=== PATIENT | male | born 1985 | race Hispanic/Latino ===

== ENCOUNTER 2018-02-03 11:09 | Inpatient (IN) | payer BC ==
[2018-02-03 11:09] VITALS: BMI 23.0
--- NOTE | 2018-02-03 11:47 | ED PDOC ---
Arrival/HPI - General Chief Complaint: Psychiatric Evaluation Time Seen by Provider: 02/03/18 11:45 - History of Present Illness Narrative History of Present Illness (Text): 02/03/18 11:47 Patient is a 32 y/o M with hx of anxiety, on klonopin, presenting with anxiety and suicidal ideation. Patient reports that he took the last of his klonopin 3 days ago and is feeling suicidal and anxious. Denies plan. Reports hx of cutting. Denies homicidal ideation. Denies auditory or visual hallucinations. Denies somatic complaints. 02/03/18 11:47 Past Medical History - Provider Review Nursing Documentation Reviewed: Yes - Infectious Disease Hx of Infectious Diseases: None - Tetanus Immunization Tetanus Immunization: Unknown - Past Medical History Past Medical History: No Previous - Cardiac Hx Cardiac Disorders: No - Pulmonary Hx Respiratory Disorders: No - Neurological Hx Neurological Disorder: No - HEENT Hx HEENT Disorder: No - Renal Hx Renal Disorder: No - Endocrine/Metabolic Hx Endocrine Disorders: No - Hematological/Oncological Hx Blood Disorders: No - Integumentary Hx Dermatological Disorder: No - Musculoskeletal/Rheumatological Hx Musculoskeletal Disorders: No - Gastrointestinal Hx Gastrointestinal Disorders: No - Genitourinary/Gynecological Hx Genitourinary Disorders: No - Psychiatric Hx Depression: Yes Hx Substance Use: No - Surgical History Other/Comment: adeniodectomy, deviated septum repair - Anesthesia Hx Anesthesia: Yes Hx Anesthesia Reactions: No Hx Malignant Hyperthermia: No - Suicidal Assessment Feels Threatened In Home Enviroment: No Family/Social History - Physician Review Nursing Documentation Reviewed: Yes Family/Social History: Unknown Family HX Smoking Status: Never Smoked Hx Alcohol Use: Yes (once a week) Hx Substance Use: No Hx Substance Use Treatment: No Allergies/Home Meds Allergies/Adverse Reactions: Allergies No Known Allergies Allergy (Verified 02/03/18 11:23) Home Medications: Home Meds Medication Instructions Recorded Confirmed Clonazepam [Klonopin] 0.5 mg PO DAILY 02/03/18 02/03/18 Review of Systems - Review of Systems Constitutional: absent: Fevers, Night Sweats ENT: absent: Rhinorrhea Respiratory: absent: SOB Cardiovascular: absent: Chest Pain Gastrointestinal: absent: Diarrhea, Nausea, Vomiting Genitourinary Male: absent: Dysuria Musculoskeletal: absent: Back Pain, Neck Pain Skin: absent: Rash Neurological: absent: Headache, Dizziness Psychiatric: Anxiety, Suicidal Ideation Physical Exam Vital Signs Reviewed: Yes Vital Signs Temp Pulse Resp BP Pulse Ox 02/03/18 11:20 98 F 73 18 145/82 98 Temperature: Afebrile Blood Pressure: Normal Pulse: Regular Respiratory Rate: Normal Appearance: Positive for: Well-Appearing, Non-Toxic, Comfortable Pain Distress: None Mental Status: Positive for: Alert and Oriented X 3 - Systems Exam Head: Present: Atraumatic, Normocephalic Pupils: Present: PERRL Extroacular Muscles: Present: EOMI Conjunctiva: Present: Normal Mouth: Present: Moist Mucous Membranes Neck: Present: Normal Range of Motion Respiratory/Chest: Present: Clear to Auscultation, Good Air Exchange. No: Respiratory Distress, Accessory Muscle Use Cardiovascular: Present: Regular Rate and Rhythm, Normal S1, S2. No: Murmurs Abdomen: No: Tenderness, Distention, Peritoneal Signs Back: Present: Normal Inspection Upper Extremity: Present: Normal Inspection. No: Cyanosis, Edema Lower Extremity: Present: Normal Inspection. No: Edema Neurological: Present: GCS=15, CN II-XII Intact, Speech Normal Skin: Present: Warm, Dry, Normal Color. No: Rashes Psychiatric: Present: Alert, Oriented x 3, Anxious, Suicidal Ideation Medical Decision Making ED Course and Treatment: 02/03/18 11:48 Impression: 32 year old male presents to the Emergency department complaining of anxiety and suicidal ideation. Plan: -- Chest xray -- EKG -- Labs -- AES crisis evaluation -- Reassess and disposition Prior Visits: Notes and results from previous visits were reviewed. Progress Notes: 02/03/18 11:49 Patient is on 1:1 for suicidal ideation. 02/03/18 12:02 EKg shows NSR at 71bpm with normal intervals and no st changes 02/03/2018 12:32:49 Chest Xray FINDINGS: LUNGS: No active pulmonary disease. PLEURA: No significant pleural effusion identified, no pneumothorax apparent. CARDIOVASCULAR: Normal. OSSEOUS STRUCTURES: No significant abnormalities. VISUALIZED UPPER ABDOMEN: Normal. OTHER FINDINGS: None. IMPRESSION: No active disease. 02/03/18 13:59 Patient medically cleared and accepted by psych for voluntary admission 02/03/18 14:00 - Lab Interpretations Lab Results: 02/03/18 11:50 02/03/18 11:50 Lab Results 02/03/18 13:35: Urine Color Yellow, Urine Appearance Clear, Urine pH 6.0, Ur Specific [place] >= 1.030, Urine Protein Negative, Urine Glucose (UA) Negative, Urine Ketones Negative, Urine Blood Small H, Urine Nitrate Negative, Urine Bilirubin Negative, Urine Urobilinogen 0.2, Ur Leukocyte Esterase Negative, Urine RBC Pending, Urine WBC Pending 02/03/18 12:04: Urine Opiates Screen Negative, Urine Methadone Screen Negative, Ur Barbiturates Screen Negative, Ur Phencyclidine Scrn Negative, Ur Amphetamines Screen Negative, U Benzodiazepines Scrn Negative, U Oth Cocaine Metabols Negative, U Cannabinoids Screen Negative 02/03/18 11:50: Alcohol, Quantitative < 10 02/03/18 11:50: Sodium 146, Potassium 4.2, Chloride 104, Carbon Dioxide 28, Anion Gap 17, BUN 22 H, Creatinine 1.0, Est GFR ( Amer) > 60, Est GFR ( Non-Af Amer) > 60, Random Glucose 92, Calcium 9.4, Total Bilirubin 0.8, AST 21, ALT 28, Alkaline Phosphatase 64, Total Protein 8.6 H, Albumin 5.0 H, Globulin 3.6, Albumin/Globulin Ratio 1.4 02/03/18 11:50: WBC 7.4, RBC 5.38, Hgb 16.5, Hct 45.6, MCV 84.8, MCH 30.7, MCHC 36.2, RDW 12.9, Plt Count 282, MPV 9.4, Gran % 57.2, Lymph % (Auto) 33.0, [place] % (Auto) 8.8 H, Eos % (Auto) 0.9 L, Baso % (Auto) 0.1, Gran # 4.24, Lymph # ( Auto) 2.5, [place] # (Auto) 0.7 H, Eos # (Auto) 0.1, Baso # (Auto) 0.01 - RAD Interpretation Radiology Orders: 02/03/18 11:46 CHEST PORTABLE [RAD] Stat Disposition/Present on Arrival - Present on Arrival Any Indicators Present on Arrival: No History of DVT/PE: No History of Uncontrolled Diabetes: No Urinary Catheter: No History of Decub. Ulcer: No History Surgical Site Infection Following: None - Disposition Have Diagnosis and Disposition been Completed?: Yes Diagnosis: Depression, Hematuria Disposition: HOSPITALIZED Disposition Time: 14:00 Patient Plan: Admission Condition: FAIR Referrals: PCP,NO [Primary Care Provider] - Follow up with primary Forms: [employer] ([place])
[2018-02-03 12:05] LABS: BASO # 0.01 K/mm3 (0.0-2.0); BASO % 0.1 % (0.0-3.0); EOS # 0.1 (0.0-0.7); EOS % 0.9 % (1.5-5.0); GRAN # 4.24 (1.4-6.5); GRAN % 57.2 % (50.0-68.0); HEMOGLOBIN 16.5 g/dL (14.0-18.0); LYMPH # 2.5 (1.2-3.4); MEAN CELL VOLUME 84.8 fl (80.0-105.0); MEAN CORPUSCULAR HEMOGLOBIN 30.7 pg (25.0-35.0); MEAN CORPUSCULAR HGB CONC 36.2 g/dl (31.0-37.0); MEAN PLATELET VOLUME 9.4 fl (7.0-11.0); MONO # 0.7 (0.1-0.6); MONO % 8.8 % (1.0-6.0); RBC 5.38 10^6/uL (3.5-6.1); RED CELL DISTRIBUTION WIDTH 12.9 % (11.5-14.5); WHITE BLOOD COUNT 7.4 10^3/ul (4.5-11.0)
[2018-02-03 12:19] LABS: ALB/GLOB RATIO 1.4 (1.1-1.8); ALT/SGPT 28 U/L (7-56); AST/SGOT 21 U/L (17-59); BLOOD UREA NITROGEN 22 mg/dL (7-21); CALCIUM 9.4 mg/dL (8.4-10.5); GFR AFRICAN-AMERICAN > 60; GFR NON-AFRICAN AMERICAN > 60
--- NOTE | 2018-02-03 12:34 | RAD ---
HISTORY: psych COMPARISON: 03/20/2015 FINDINGS: LUNGS: No active pulmonary disease. PLEURA: No significant pleural effusion identified, no pneumothorax apparent. CARDIOVASCULAR: Normal. OSSEOUS STRUCTURES: No significant abnormalities. VISUALIZED UPPER ABDOMEN: Normal. OTHER FINDINGS: None. IMPRESSION: No active disease.
[2018-02-03 12:42] LABS: BARBITURATES, UR NEGATIVE (NEGATIVE); BENZODIAZEPINES, UR NEGATIVE (NEGATIVE); OPIATES, UR NEGATIVE (NEGATIVE); PHENCYCLIDINE, UR NEGATIVE (NEGATIVE)
[2018-02-03 13:53] LABS: URINE BILIRUBIN NEGATIVE (NEGATIVE); URINE BLOOD SMALL (NEGATIVE); URINE GLUCOSE (UA) NEGATIVE (NEGATIVE); URINE LEUKOCYTE ESTERASE NEGATIVE Leu/uL (NEGATIVE); URINE PROTEIN NEGATIVE mg/dL (<30 mg/dL); URINE UROBILINOGEN 0.2 E.U./dL (<1 E.U./dL)
[2018-02-03 13:57] LABS: URINE APPEARANCE CLEAR (CLEAR); URINE COLOR YELLOW (YELLOW)
[2018-02-03 14:07] LABS: URINE BACTERIA MOD (NEG); URINE EPITHELIAL CELLS 0 - 2 /hpf (0-5); URINE WBC 0 - 2 /hpf (0-6)
[2018-02-03 14:41] VITALS: O2SAT 100
[2018-02-03] MEDS ORDERED: Magnesium Hydroxide Susp 30 ml UD PO PRN (18:01)
[2018-02-03] MEDS ORDERED: Alum-Mag Hydrox-Simethicone Susp (30 mL) PO PRN (18:01)
--- NOTE | 2018-02-03 18:22 | PCM.BM ---
<Baldomero Sanchez - Last Filed: 02/03/18 18:19> Treatment Plan Problems - Problems identified on initial assessmt Feeling worhtlessness Date Initiated: 02/03/18 Time Initiated: 16:00 Assessment reference: NA Status: Active Priority: 1 Comment: "difficult to deal without my son" Suicide Risk Date Initiated: 02/03/18 Time Initiated: 16:00 Assessment reference: NA Status: Active Priority: 2 Comment: "it crossed my mind to hurt myself" medication nonadherence Date Initiated: 02/03/18 Time Initiated: 16:00 Assessment reference: NA Status: Active Priority: 3 Altered sleep pattern Date Initiated: 02/03/18 Time Initiated: 16:00 Assessment reference: NA Status: Active Priority: 4 Comment: I only sleep 2-3 hrs Treatment assets and liabiliti Patient Assests: cooperative, insightful, motivated, ADL independent, physically healthy, negotiates basic needs, financial stabiity Patient Liabilities: live alone, relationship conflicts - Milieu Protocol Maintain good personal hygiene: every shift Encourage regular showers, every shift Remind patient to perform daily oral care, every shift Assist patient to perform ADL's Conduct patient checks and document Observation sheet: Q15 minutes Maintain personal safety: every shift Educate patient to report safety concerns to staff, every shift Monitor environment for contraband/sharps Medication safety: Monitor for expected outcome, potential side effects: every shift, Assess barriers to learning: every shift, Assess readiness for medication education: every shift Discharge/Continuing Care - Education Needs Education Needs: Patient Medication, Patient Diagnosis/Disease Process, Patient Coping Skills, Patient Community resources, Patient Activities of Daily Living, Patient Nutrition, Patient Health Practices/Safety, Patient Personal Hygiene/ Grooming - Discharge Discharge Criteria: Tolerates medication w/o severe side effects, Free of Suicidal thoughts, Normal sleep pattern, Ability to care for self, Reduction of target symptoms Discharge to:: Home <Nicole Doss - Last Filed: 02/04/18 15:32> - Diagnosis (1) MDD (major depressive disorder) Status: Acute Interventions: 02/04/18 15:33 Psychoeducation Psychopharmacology/adjustment of medications as needed/ monitoring possible side effects Evaluate pt on daily basis Compliance with medications and follow up appointments Suicide and homicide risk assessment and prevention Relapse prevention Reduction of symptoms Improve functional status Family involvement As outpatient: cognitive behavioral therapy (2) CRISTHIAN (generalized anxiety disorder) Status: Acute Interventions: 02/04/18 15:33 Psychoeducation Psychopharmacology/adjustment of medications as needed/ monitoring possible side effects Evaluate pt on daily basis Discussion of importance of being compliant with medications and follow up appointments Suicide and homicide risk assessment and prevention, coping strategies, safety plan Reduction of symptoms Relaxation techniques and breathing exercises Improve functional status Family involvement Cognitive behavioral therapy as outpatient <Saba Silva Y - Last Filed: 02/05/18 16:22> Family Contact Family involvement: Family/SO is involved
--- NOTE | 2018-02-04 00:31 | CARD ---
APPROVED REPORT EKG Measurement Heart [id number] <Conclusion> Normal sinus rhythm Normal ECG
[2018-02-04 08:22] LABS: GLUCOSE,FASTING 95 mg/dL (65-110); HDL CHOLESTEROL 50 mg/dL (29-60)
[2018-02-04 08:34] LABS: LDL CHOLESTEROL 75 mg/dL (0-129)
[2018-02-04 08:36] LABS: FREE T4 1.16 ng/dL (0.78-2.19)
--- NOTE | 2018-02-04 15:32 | PCM.PSYCH ---
Initial Psychiatric Evaluation - Initial Psychiatric Evaluation Type of Admission: Voluntary Legal Status: Capacity (Patient has capacity to sign consent for treatment) Chief Complaint (in patient's own words): "I did not feel well for past week, I was feeling depressed, I was feeling hopeless, I thought to end up my life but I got scared and I brought myself to the hospital" Patient's Reaction to Hospitalization: patient was admitted for evaluation and stabilization of depressive symptoms, feeling of hopelessness, helplessness, suicidal ideation with a plan to cut himself with a knife History of Present Illness and Precipitating Events: Shortly patient is 32 year old male, not known previous psychiatric history, self reported history of anxiety, patient sees local psychiatrist for anxiety and takes Klonopin, patient brought himself to the hospital for evaluation of suicidal ideation with a plan to cut himself with a knife, patient was holding a knife but got scared and brought himself to the hospital, patient requires further evaluation and stabilization, observation, medications titration, patient feel outpatient treatment, now requires inpatient hospitalization. Patient was seen today at the treatment team meeting room, patient presented to be depressed, flat affect, acceptable personal hygiene, good ADLs. Patient was minimizing his history, patient reported that he slept well on Remeron 15 mg at the nighttime for 2 was initiated by this appeals writer, patient reported that he was feeling depressed more than usual for past week, patient was coping with the stress by drinking beer, patient denied alcohol addiction, patient reported that he is not using drugs, denied smoking. Patient reported for past week she was feeling more depressed, hopeless, helpless, was not able to eat, lost weight, patient also had difficulty to fall and stay asleep. Patient reported that he feels anxious, "like room is closing on me", patient reported that he feels anxious, and "on ease". Patient denied visual, auditory, tactile hallucinations, patient does not present to be psychotic, denied paranoid ideation. Patient denied history of being abused, denied physical, sexual, emotional abuse. Patient had multiple sexual partners, which led patient to have recent breakup with the girlfriend and mother of his son. past psychiatric history: Patient denied ever been admitted to the psychiatric inpatient unit, denied history of suicidal attempts, patient was seen by Dr. Eduardo Caceres in the community, who prescribed Klonopin as needed for anxiety. Patient reported that Klonopin was not very effective to him. Family history: Patient denied family history of mental illness. Medical history: Patient denied medical problems. Social history: Patient works for the [employer] or [employer], denied any legal problems, lives independently. 02/03/18 11:50 02/03/18 11:50 Lab Results 02/04/18 07:30: Free T4 1.16, TSH 3rd Generation 1.84 02/04/18 07:30: Fasting Glucose 95, Triglycerides 107, Cholesterol 150, LDL Cholesterol Direct 75, HDL Cholesterol 50 02/03/18 13:35: Urine Color Yellow, Urine Appearance Clear, Urine pH 6.0, Ur Specific [place] >= 1.030, Urine Protein Negative, Urine Glucose (UA) Negative, Urine Ketones Negative, Urine Blood Small H, Urine Nitrate Negative, Urine Bilirubin Negative, Urine Urobilinogen 0.2, Ur Leukocyte Esterase Negative, Urine RBC 5 - 10, Urine WBC 0 - 2, Ur Epithelial Cells 0 - 2, Urine Bacteria Mod 02/03/18 12:04: Urine Opiates Screen Negative, Urine Methadone Screen Negative, Ur Barbiturates Screen Negative, Ur Phencyclidine Scrn Negative, Ur Amphetamines Screen Negative, U Benzodiazepines Scrn Negative, U Oth Cocaine Metabols Negative, U Cannabinoids Screen Negative 02/03/18 11:50: Alcohol, Quantitative < 10 02/03/18 11:50: Sodium 146, Potassium 4.2, Chloride 104, Carbon Dioxide 28, Anion Gap 17, BUN 22 H, Creatinine 1.0, Est GFR ( Amer) > 60, Est GFR ( Non-Af Amer) > 60, Random Glucose 92, Calcium 9.4, Total Bilirubin 0.8, AST 21, ALT 28, Alkaline Phosphatase 64, Total Protein 8.6 H, Albumin 5.0 H, Globulin 3.6, Albumin/Globulin Ratio 1.4 02/03/18 11:50: WBC 7.4, RBC 5.38, Hgb 16.5, Hct 45.6, MCV 84.8, MCH 30.7, MCHC 36.2, RDW 12.9, Plt Count 282, MPV 9.4, Gran % 57.2, Lymph % (Auto) 33.0, [place] % (Auto) 8.8 H, Eos % (Auto) 0.9 L, Baso % (Auto) 0.1, Gran # 4.24, Lymph # ( Auto) 2.5, [place] # (Auto) 0.7 H, Eos # (Auto) 0.1, Baso # (Auto) 0.01 Vital Signs Temp Pulse Resp BP Pulse Ox 02/04/18 06:59 97.9 F 58 L 20 105/70 02/03/18 16:11 16 02/03/18 14:39 98 F 68 18 128/75 100 02/03/18 11:20 98 F 73 18 145/82 98 Current Medications: Active Medications Generic Name Dose Route Start Last Admin Trade Name Freq PRN Reason Stop Dose Admin Acetaminophen 650 mg 02/03/18 18:00 Tylenol 325mg Tab PO Q6H PRN Pain, moderate (4-7) Al Hydrox/Mg Hydrox/Simethicone 30 ml 02/03/18 18:01 Maalox Plus 30 Ml PO DAILY PRN Indigestion / Heartburn Lorazepam 2 mg 02/03/18 17:57 Ativan PO Q6 PRN Agitation Protocol Lorazepam 2 mg 02/03/18 17:59 Ativan IVP Q6H PRN Anxiety Protocol Magnesium Hydroxide 30 ml 02/03/18 18:01 Milk Of Magnesia PO DAILY PRN Constipation Mirtazapine 15 mg 02/03/18 22:00 02/03/18 22:48 Remeron PO 15 mg HS VADIM Administration Zaleplon 5 mg 02/03/18 17:41 Sonata PO HS PRN Insomnia Ziprasidone 20 mg 02/03/18 17:54 Geodon Cap PO Q6 PRN Anxiety Protocol Ziprasidone 20 mg 02/03/18 17:56 Geodon Inj IM Q6 PRN Agitation Protocol Past Psychiatric History - Past Psychiatric History Previous Treatment History: None Prior Professional Help: see HPI Prior Psychiatric Treatment: see HPI At what hospital: see HPI Duration: see HPI Nature of Treatment: see HPI Explanation of prior treatment: see HPI History of Abuse: see HPI History of ETOH/Drug Use: see HPI History of Family Illness: see HPI Pertinent Medical Hx (Current Medical&Sleep Prob, Allergies): Allergies Allergy/AdvReac Type Severity Reaction Status Date / Time No Known Allergies Allergy Verified 02/03/18 15:51 Clonazepam [Klonopin] 0.5 mg PO DAILY 02/03/18 Review of Systems - Review of Systems Systems not reviewed;Unavailable: Acuity of Condition - EENT Eyes: As Per HPI Ears: As Per HPI Nose/Mouth/Throat: As Per HPI - Cardiovascular Cardiovascular: As Per HPI - Respiratory Respiratory: As Per HPI - Gastrointestinal Gastrointestinal: As Per HPI - Genitourinary Genitourinary: As Per HPI - Reproductive: Male Reproductive:Male: As Per HPI - Musculoskeletal Musculoskeletal: As Par HPI - Integumentary Integumentary: As Per HPI - Neurological Neurological: As Per HPI - Psychiatric Psychiatric: As Per HPI - Endocrine Endocrine: As Per HPI - Hematologic/Lymphatic Hematologic: As Per HPI Mental Status Examination - Personal Presentation Personal Presentation: Looks stated age - Affect Affect: Flat - Motor Activity Motor Activity: Psychomotor Retardation - Reliability in Providing Information Reliability in Providing Information: Fair - Speech Speech: Organized - Mood Mood: Depressed, Anxious - Formal Thought Process Formal Thought Process: No Impairment - Obsessions/Compulsions Obsessions: None Compulsions: None - Cognitive Functions Orientation: Person, Place, Situation, Time Sensorium: Alert Attention/Concentration: Easily distracted Estimate of Intelligence: Average Judgement: Imparied, as evidence by: Lack of insight into illness - Risk Risk: Suicidal, Self-mutilation, Diminished functioning - Strength & Assets Inventory Strength & Assets Inventory: Intelligence, Family support, Education, Employment status, Employment history, Interests/hobbies, Spiritual affiliations , Cooperative, Other (good physical health, no drugs involved, good social support) - Limitations Limitations: Other (pt had suicidal thougths of cutting hismelf) DSM 5 DX - DSM 5 DSM 5 Diagnosis: mdd r/o adjustment disorder r/o CRISTHIAN r/o panic disorder - Recommended/Plan of Treatment Treatment Recommendations and Plan of Treatment: Milieu/structure/supportive therapy Medical consult Will be considered Remeron 15 mg at the nighttime for insomnia as well as major depressive disorder As needed medication SW consultation for discharge plan and social issues Family involvement Follow up on labs Will monitor closely Pt was educated about risk/benefits and alternatives of medications, coping strategies (safety plan, suicide prevention), relapse prevention, importance of follow up with psychiatrist and therapist, stay away from drugs/alcohol/smoking Projected ELOS: 5days Prognosis: fair Discharge Plan and Discharge Criteria: Pt will be not depressed or manic, will be more hopeful, will be not psychotic or anxious, will be not having thoughts of harming self or others, will be tolerating medications well, will not have major side effects, will be able to function, will not pose threat to self or others. - Smoking Cessation Smoking Cessation Initiated: No Reason for not providing: denied smoking
--- NOTE | 2018-02-05 16:27 | PCM.PYCHPN ---
Psychiatric Progress Note - Psychiatric Progress Note Patient seen today, length of contact: 30 minutes Patient Chief Complaint: "I was feeling very hopeless, helpless, I didn't want to do anything' Problems Identified/Issues Discussed: Suicide/ homicide prevention, past psychiatric h/o, current psychiatric symptoms , medical problems, risk/benefits and alternatives of medications, medications compliance, coping strategies, substance abuse h/o, relapse prevention, importance of follow up with psychiatrist and therapist, discharge plan. Medical Problems: patient reported being healthy Diagnostic Results: 02/03/18 11:50 02/03/18 11:50 Lab Results 02/04/18 07:30: RPR Nonreactive 02/04/18 07:30: Free T4 1.16, TSH 3rd Generation 1.84 02/04/18 07:30: Fasting Glucose 95, Triglycerides 107, Cholesterol 150, LDL Cholesterol Direct 75, HDL Cholesterol 50 02/03/18 13:35: Urine Color Yellow, Urine Appearance Clear, Urine pH 6.0, Ur Specific [place] >= 1.030, Urine Protein Negative, Urine Glucose (UA) Negative, Urine Ketones Negative, Urine Blood Small H, Urine Nitrate Negative, Urine Bilirubin Negative, Urine Urobilinogen 0.2, Ur Leukocyte Esterase Negative, Urine RBC 5 - 10, Urine WBC 0 - 2, Ur Epithelial Cells 0 - 2, Urine Bacteria Mod 02/03/18 12:04: Urine Opiates Screen Negative, Urine Methadone Screen Negative, Ur Barbiturates Screen Negative, Ur Phencyclidine Scrn Negative, Ur Amphetamines Screen Negative, U Benzodiazepines Scrn Negative, U Oth Cocaine Metabols Negative, U Cannabinoids Screen Negative 02/03/18 11:50: Alcohol, Quantitative < 10 02/03/18 11:50: Sodium 146, Potassium 4.2, Chloride 104, Carbon Dioxide 28, Anion Gap 17, BUN 22 H, Creatinine 1.0, Est GFR ( Amer) > 60, Est GFR ( Non-Af Amer) > 60, Random Glucose 92, Calcium 9.4, Total Bilirubin 0.8, AST 21, ALT 28, Alkaline Phosphatase 64, Total Protein 8.6 H, Albumin 5.0 H, Globulin 3.6, Albumin/Globulin Ratio 1.4 02/03/18 11:50: WBC 7.4, RBC 5.38, Hgb 16.5, Hct 45.6, MCV 84.8, MCH 30.7, MCHC 36.2, RDW 12.9, Plt Count 282, MPV 9.4, Gran % 57.2, Lymph % (Auto) 33.0, [place] % (Auto) 8.8 H, Eos % (Auto) 0.9 L, Baso % (Auto) 0.1, Gran # 4.24, Lymph # ( Auto) 2.5, [place] # (Auto) 0.7 H, Eos # (Auto) 0.1, Baso # (Auto) 0.01 Vital Signs Temp Pulse Resp BP Pulse Ox 02/05/18 15:00 70 18 102/61 02/05/18 07:00 98.0 F 56 L 16 103/68 02/04/18 07:00 98.0 F 56 L 16 103/68 02/04/18 06:59 97.9 F 58 L 20 105/70 02/03/18 16:11 16 02/03/18 14:39 98 F 68 18 128/75 100 02/03/18 11:20 98 F 73 18 145/82 98 DSM 5 Symptoms Update: Shortly patient is 32 year old male, not known previous psychiatric history, self reported history of anxiety, patient sees local psychiatrist for anxiety and takes Klonopin, patient brought himself to the hospital for evaluation of suicidal ideation with a plan to cut himself with a knife, patient was holding a knife but got scared and brought himself to the hospital, patient requires further evaluation and stabilization, observation, medications titration, patient feel outpatient treatment, now requires inpatient hospitalization. Patient was seen today at the treatment team meeting , patient presented to be depressed, flat affect, acceptable personal hygiene, good ADLs. patient presented to be depressed, when he was told him about his 7 year old son patient was tearful, patient reported that he broke up with his mother about the year ago and passed year was "hell for me", patient reported that he was feeling severely depressed, had no energy, did not want to do anything, feeling very down and hopeless. At present moment patient reported that he sleeps better , patient has some future orientedplans, patient was to be discharged and willing to have therapy and med management. Pt's family was proactive, scheduled appt for pt with therapist Dr.Brian Patel. pt wants to be f/u with , psychiatrist. so far patient tolerates medications well, no side effects observed or reported , aims 0, no EPS. as per staff patient is compliant with the medications, visible in the unit, no agitation, no aggression. Impression: Major depressive disorder, severe with no psychosis Medication Change: Yes (Remeron increased) Medical Record Reviewed: Yes Consults ordered or reviewed: patient is healthy, no medical issues, did not require medical consult, patient was seen by medical doctor in the emergency room Mental Status Examination - Cognitive Function Orientation: Person, Place, Situation, Time Memory: Intact Attention: Poor (better) Concentration: Poor (mproving) Association: WNL Fund of Knowledge: WNL - Mood Mood: Depressed (I feel little better), Anxious - Affect Affect: Flat (and tearful) - Formal Thought Process Formal Thought Process: No Impairment - Suicidal Ideation Suicidal Ideation: No - Homicidal Ideation Homicidal Ideation: No Goal/Treatment Plan - Goal/Treatment Plan Need for Continued Stay: Remain at risks for inpatient hospitalization, Severe depression anxiety, Discharge may exacerbated symptoms, Severe functional impairment Progress Toward Problem(s) and Goals/Treatment Plan: Milieu/structure/supportive therapy Medical consult Will be considered Remeron 30 mg at the nighttime for insomnia as well as major depressive disorder As needed medication SW consultation for discharge plan and social issues Family involvement Follow up on labs Will monitor closely Pt was educated about risk/benefits and alternatives of medications, coping strategies (safety plan, suicide prevention), relapse prevention, importance of follow up with psychiatrist and therapist, stay away from drugs/alcohol/smoking Estimated Date of D/C: 02/06/18
[2018-02-06 07:10] VITALS: BP 102/66; PULSE 61; RESP 20; TEMP 97.8
--- NOTE | 2018-02-06 17:55 | PCM.PYCHDC ---
Mental Status Examination - Mental Status Examination Orientation: Person, Place, Situation, Time Memory: Intact Mood: Neutral Affect: Constricted (But more reactive and mood congruent) Speech: Appropriate Attention: WNL Concentration: WNL Association: WNL Fund of Knowledge: WNL Formal Thought Process: No Impairment Description of patient's judgement and insight: Pt has improved insight into mental and medical illness, pt was compliant with medications and unit rules and regulations, pt was going to groups, was calm, cooperative, socially appropriate, no behavioral incidents, no agitation, no aggression. Psychotic Thoughts and Behaviors: Pt denied v/a/t hallucinations, denied paranoid ideations, pt does not appear to be psychotic, and thought process is goal directed. Suicidal Ideation: No Current Homicidal Ideation?: No Plan: pt adamantly denied thoughts of harming self or others denied intent or plan. Discharge Summary - Discharge Note Reason for Hospitalization: patient was admitted for evaluation and stabilization of depressive symptoms, feeling of hopelessness, helplessness, suicidal ideation with a plan to cut himself with a knife Psychiatric History (includes Medical, Family, Personal Hx): see HPI Laboratory Data: 02/03/18 11:50 02/03/18 11:50 Lab Results 02/04/18 07:30: RPR Nonreactive 02/04/18 07:30: Free T4 1.16, TSH 3rd Generation 1.84 02/04/18 07:30: Fasting Glucose 95, Triglycerides 107, Cholesterol 150, LDL Cholesterol Direct 75, HDL Cholesterol 50 02/03/18 13:35: Urine Color Yellow, Urine Appearance Clear, Urine pH 6.0, Ur Specific [place] >= 1.030, Urine Protein Negative, Urine Glucose (UA) Negative, Urine Ketones Negative, Urine Blood Small H, Urine Nitrate Negative, Urine Bilirubin Negative, Urine Urobilinogen 0.2, Ur Leukocyte Esterase Negative, Urine RBC 5 - 10, Urine WBC 0 - 2, Ur Epithelial Cells 0 - 2, Urine Bacteria Mod 02/03/18 12:04: Urine Opiates Screen Negative, Urine Methadone Screen Negative, Ur Barbiturates Screen Negative, Ur Phencyclidine Scrn Negative, Ur Amphetamines Screen Negative, U Benzodiazepines Scrn Negative, U Oth Cocaine Metabols Negative, U Cannabinoids Screen Negative 02/03/18 11:50: Alcohol, Quantitative < 10 02/03/18 11:50: Sodium 146, Potassium 4.2, Chloride 104, Carbon Dioxide 28, Anion Gap 17, BUN 22 H, Creatinine 1.0, Est GFR ( Amer) > 60, Est GFR ( Non-Af Amer) > 60, Random Glucose 92, Calcium 9.4, Total Bilirubin 0.8, AST 21, ALT 28, Alkaline Phosphatase 64, Total Protein 8.6 H, Albumin 5.0 H, Globulin 3.6, Albumin/Globulin Ratio 1.4 02/03/18 11:50: WBC 7.4, RBC 5.38, Hgb 16.5, Hct 45.6, MCV 84.8, MCH 30.7, MCHC 36.2, RDW 12.9, Plt Count 282, MPV 9.4, Gran % 57.2, Lymph % (Auto) 33.0, [place] % (Auto) 8.8 H, Eos % (Auto) 0.9 L, Baso % (Auto) 0.1, Gran # 4.24, Lymph # ( Auto) 2.5, [place] # (Auto) 0.7 H, Eos # (Auto) 0.1, Baso # (Auto) 0.01 Vital Signs Temp Pulse Resp BP Pulse Ox 02/06/18 07:09 97.8 F 61 20 102/66 02/05/18 15:00 70 18 102/61 02/05/18 07:00 98.0 F 56 L 16 103/68 02/04/18 07:00 98.0 F 56 L 16 103/68 02/04/18 06:59 97.9 F 58 L 20 105/70 02/03/18 16:11 16 02/03/18 14:39 98 F 68 18 128/75 100 02/03/18 11:20 98 F 73 18 145/82 98 Consultations:: List each consultation separately and include: 1. Reason for request. 2. Findings. 3. Follow-up Consultations: patient is healthy, no medical issues, did not require medical consult, patient was seen by medical doctor in the emergency room Summary of Hospital Course include:: 1. Description of specific treatment plan utilized for patients during their course of treatmen. 2. Summarize the time- course for resolution of acute symptoms and/or regressed behaviors. 3. Describe issues identified and worked on during hospitalization. 4. Describe medication utilized. 5. Describe medical problems identified and treated. 6. Reassessment of suicide risk Summary of Hospital Course: Shortly patient is 32 year old male, not known previous psychiatric history, self reported history of anxiety, patient sees local psychiatrist for anxiety and takes Klonopin, patient brought himself to the hospital for evaluation of suicidal ideation with a plan to cut himself with a knife, patient was holding a knife but got scared and brought himself to the hospital, patient requires further evaluation and stabilization, observation, medications titration, patient feel outpatient treatment, now requires inpatient hospitalization. Patient was seen today at the treatment team meeting room, patient presented to be depressed, flat affect, acceptable personal hygiene, good ADLs. Patient was minimizing his history, patient reported that he slept well on Remeron 15 mg at the nighttime which was initiated by this feature writer, patient reported that he was feeling depressed more than usual for past week, patient was coping with the stress by drinking beer, patient denied alcohol addiction, patient reported that he is not using drugs, denied smoking. Patient reported for past week she was feeling more depressed, hopeless, helpless, was not able to eat, lost weight, patient also had difficulty to fall and stay asleep. Patient reported that he feels anxious, "like room is closing on me", patient reported that he feels anxious, and "on ease". Patient denied visual, auditory, tactile hallucinations, patient does not present to be psychotic, denied paranoid ideation. Patient denied history of being abused, denied physical, sexual, emotional abuse. Patient had multiple sexual partners, which led patient to have recent breakup with the girlfriend and mother of his son. past psychiatric history: Patient denied ever been admitted to the psychiatric inpatient unit, denied history of suicidal attempts, patient was seen by Dr. Eduardo Caceres in the community, who prescribed Klonopin as needed for anxiety. Patient reported that Klonopin was not very effective to him. Family history: Patient denied family history of mental illness. Medical history: Patient denied medical problems. Social history: Patient works for the [employer] or [employer], denied any legal problems, lives independently. 02/03/18 11:50 02/03/18 11:50 Lab Results 02/04/18 07:30: Free T4 1.16, TSH 3rd Generation 1.84 02/04/18 07:30: Fasting Glucose 95, Triglycerides 107, Cholesterol 150, LDL Cholesterol Direct 75, HDL Cholesterol 50 02/03/18 13:35: Urine Color Yellow, Urine Appearance Clear, Urine pH 6.0, Ur Specific [place] >= 1.030, Urine Protein Negative, Urine Glucose (UA) Negative, Urine Ketones Negative, Urine Blood Small H, Urine Nitrate Negative, Urine Bilirubin Negative, Urine Urobilinogen 0.2, Ur Leukocyte Esterase Negative, Urine RBC 5 - 10, Urine WBC 0 - 2, Ur Epithelial Cells 0 - 2, Urine Bacteria Mod 02/03/18 12:04: Urine Opiates Screen Negative, Urine Methadone Screen Negative, Ur Barbiturates Screen Negative, Ur Phencyclidine Scrn Negative, Ur Amphetamines Screen Negative, U Benzodiazepines Scrn Negative, U Oth Cocaine Metabols Negative, U Cannabinoids Screen Negative 02/03/18 11:50: Alcohol, Quantitative < 10 02/03/18 11:50: Sodium 146, Potassium 4.2, Chloride 104, Carbon Dioxide 28, Anion Gap 17, BUN 22 H, Creatinine 1.0, Est GFR ( Amer) > 60, Est GFR ( Non-Af Amer) > 60, Random Glucose 92, Calcium 9.4, Total Bilirubin 0.8, AST 21, ALT 28, Alkaline Phosphatase 64, Total Protein 8.6 H, Albumin 5.0 H, Globulin 3.6, Albumin/Globulin Ratio 1.4 02/03/18 11:50: WBC 7.4, RBC 5.38, Hgb 16.5, Hct 45.6, MCV 84.8, MCH 30.7, MCHC 36.2, RDW 12.9, Plt Count 282, MPV 9.4, Gran % 57.2, Lymph % (Auto) 33.0, [place] % (Auto) 8.8 H, Eos % (Auto) 0.9 L, Baso % (Auto) 0.1, Gran # 4.24, Lymph # ( Auto) 2.5, [place] # (Auto) 0.7 H, Eos # (Auto) 0.1, Baso # (Auto) 0.01 Vital Signs Temp Pulse Resp BP Pulse Ox 02/04/18 06:59 97.9 F 58 L 20 105/70 02/03/18 16:11 16 02/03/18 14:39 98 F 68 18 128/75 100 02/03/18 11:20 98 F 73 18 145/82 98 over the past 3 days patient was stabilized on the following medications: Remeron 30 mg at the nighttime for depression and insomnia Patient tolerated medications well, no side effects observed or reported, patient did not ask r any as needed medications, was in behavioral control in the unit, was attending all groups, as a result mood improved, affect became brighter, patient seems to be remorseful for his suicidal ideation, patient is willing to be followed up with outpatient psychiatrist as well as with a therapist, patient was proactive in regards of scheduling a follow-up appointment with a therapist, patient provided this feature writer with Dr.Brian Naylor and reported he will be f/u with him for therapy. Over the course of this hospitalization pt was attending groups, pt also had medication management, had therapeutic milieu. Overall pt improved significantly, pt's affect became brighter, pt was less depressed, has realistic future oriented plans, pt also does not appear to be psychotic, or anxious, pt was socially appropriate, no behavioral issues, pts insight improved as well and soon pt deemed to be ready for discharge. At the time of the discharge pt denied been depressed, denied thoughts of harming self or others, denied psychotic symptoms, and pt does not appeared to be psychotic, denied been anxious, pt is not in imminent danger to self or others, will be following up with office, information about follow up appointment, time and address provided to the pt, it is patient responsibility to follow up with outpatient clinic, PMD as well as specialists ( see SW note for more detailed information). In case pt will need to obtain results of studies pending at discharge pt was provided with contact information of Psychiatric Inpatient unit [phone] as well as Medical Record Department [phone]. patient denied using drugs, denied smoking cigarettes, denied alcohol consumption pt was provided with prescriptions for all of medications (please see medication reconciliation form) Pt was educated about safety plan in case of worsening of symptoms or in case of suicidal or homicidal ideation call 911 or go to the nearest ER, also was educated to take meds as prescribed and stay away from drugs, pt verbalized understanding. - Diagnosis (1) MDD (major depressive disorder) Status: Acute Priority: High (2) CRISTHIAN (generalized anxiety disorder) Status: Acute Priority: Medium - Final Diagnosis (DSM 5) Condition upon Discharge: IMPROVED Disposition: HOME/ ROUTINE Follow-up Treatment Plan: At the time of the discharge pt denied been depressed, denied thoughts of harming self or others, denied psychotic symptoms, and pt does not appeared to be psychotic, denied been anxious, pt is not in imminent danger to self or others, will be following up with office, information about follow up appointment, time and address provided to the pt, it is patient responsibility to follow up with outpatient clinic, PMD as well as specialists ( see SW note for more detailed information). In case pt will need to obtain results of studies pending at discharge pt was provided with contact information of Psychiatric Inpatient unit [phone] as well as Medical Record Department [phone]. patient denied using drugs, denied smoking cigarettes, denied alcohol consumption pt was provided with prescriptions for all of medications (please see medication reconciliation form) Pt was educated about safety plan in case of worsening of symptoms or in case of suicidal or homicidal ideation call 911 or go to the nearest ER, also was educated to take meds as prescribed and stay away from drugs, pt verbalized understanding. Prescriptions/Medication Reconciliation: Mirtazapine [Remeron] 30 mg PO HS #15 tab - Smoking Cessation Smoking Cessation Medication prescribed: No Reason for not providing: pt dneied smoking - Antipsychotic Medications Pt discharged on 2 or more routine antipsychotic medications: No
== END 2018-02-06 14:15 | disposition home or self-care (01) | DRG 885 ==
LOC: ED 11:09 → ERH 14:00 → PSYC 14:53
PROVIDERS: ADMIT Psychiatry & Neurology Psychiatry; ATTEND Psychiatry & Neurology Psychiatry
DX: F32.2 Major depressive disorder, single episode, severe without psychotic features (principal); R45.851 Suicidal ideations; F41.1 Generalized anxiety disorder; G47.00 Insomnia, unspecified; Z91.5 Personal history of self-harm